=== PATIENT | male | born 1995 | race Native Hawaiian/Other Pacific Islander ===

== ENCOUNTER 2017-02-24 16:19 | Emergency (ER) | payer SELFPAY ==
[2017-02-24] MEDS ORDERED: BOOSTRIX IM ONE (22:16)
[2017-02-24] MEDS ORDERED: XYLOCAINE 1% 20 mL INFILTRATI ONE (22:16)
[2017-02-24] MEDS ORDERED: ULTRAM PO ONE (22:17)
--- NOTE | 2017-02-24 22:58 | Emergency Department Report ---
ED Upper Extremity Inj HPI - General Chief Complaint: Extremity Injury, Upper Stated Complaint: FINGER INJURY Time Seen by Provider: 02/24/17 22:13 Source: patient Mode of arrival: Ambulatory Limitations: No Limitations - History of Present Illness Initial Comments: This is a 21-year-old male nontoxic, well nourished in appearance, no acute signs of distress presents to the ED with c/o of right thumb finger pain. Patient stated a metal plate hit his finger today around 3 PM. Patient stated his fingernail is coming out. Patient denies any numbness, tingling, fever, chills, headache, nausea, vomiting, chest pain, shortness of breathe, fever, chills, headache. Patient denies any other trauma. Denies up to date tetanus. Patients is present in the ED. MD Complaint: Injury to:: right, finger -: This afternoon Other Extremity Injury: Fingers: Right Other Injuries: none Place: work Severity scale (0 -10): 8 Improves With: none Worsens With: none Context: injury Associated Symptoms: denies other symptoms. denies: weakness, numbness, neck pain, suspects foreign body, nausea/vomiting, heard/felt popping sensat - Related Data Previous Rx's Medication Instructions Recorded Last Taken Type Sulfamethoxazole/Trimethoprim 1 each PO BID #14 tablet 02/25/17 Unknown Rx [Bactrim DS TAB] traMADol [Ultram] 50 mg PO Q6HR PRN #20 tablet 02/25/17 Unknown Rx Allergies Allergy/AdvReac Type Severity Reaction Status Date / Time No Known Allergies Allergy Verified 02/24/17 23:26 ED Review of Systems ROS: Stated complaint: FINGER INJURY Other details as noted in HPI Constitutional: denies: chills, fever Eyes: denies: eye pain, eye discharge, vision change ENT: denies: ear pain, throat pain Respiratory: denies: cough, shortness of breath, wheezing Cardiovascular: denies: chest pain, palpitations Endocrine: no symptoms reported Gastrointestinal: denies: abdominal pain, nausea, diarrhea Genitourinary: denies: urgency, dysuria Musculoskeletal: denies: back pain, joint swelling, arthralgia Skin: denies: rash, lesions Neurological: denies: headache, weakness, paresthesias Psychiatric: denies: anxiety, depression Hematological/Lymphatic: denies: easy bleeding, easy bruising ED Past Medical Hx - Past Medical History Previous Medical History?: No - Surgical History Past Surgical History?: No - Social History Smoking Status: Never Smoker Substance Use Type: Alcohol, Marijuana - Medications Home Medications: Home Medications Medication Instructions Recorded Confirmed Last Taken Type Sulfamethoxazole/Trimethoprim 1 each PO BID #14 tablet 02/25/17 Unknown Rx [Bactrim DS TAB] traMADol [Ultram] 50 mg PO Q6HR PRN #20 tablet 02/25/17 Unknown Rx ED Physical Exam - General Limitations: No Limitations General appearance: alert, in no apparent distress - Head Head exam: Present: atraumatic, normocephalic - Eye Eye exam: Present: normal appearance - ENT ENT exam: Present: mucous membranes moist - Neck Neck exam: Present: normal inspection - Respiratory Respiratory exam: Present: normal lung sounds bilaterally. Absent: respiratory distress - Cardiovascular Cardiovascular Exam: Present: regular rate, normal rhythm. Absent: systolic murmur, diastolic murmur, rubs, gallop - GI/Abdominal GI/Abdominal exam: Present: soft, normal bowel sounds - Rectal Rectal exam: Present: deferred - Extremities Exam Extremities exam: Present: normal inspection, full ROM, tenderness, normal capillary refill. Absent: pedal edema, joint swelling, calf tenderness - Expanded Upper Extremity Exam Right General: Present: normal inspection Shoulder Exam: Present: normal inspection, full ROM Upper Arm exam: Present: normal inspection, full ROM Elbow exam: Present: normal inspection, full ROM Forearm Wrist exam: Present: normal inspection, full ROM Hand Wrist exam: Present: normal inspection, full ROM, tenderness, abrasion, nail avulsion. Absent: swelling, laceration, ecchymosis, deformity, crepidus, dislocation, erythema, amputation, subungual hematoma Neuro motor exam: Present: wrist extension intact, thumb opposition intact, thumb IP flexion intact, thumb adduction intact, fingers 2-5 abduction intact Neurosensory exam: Present: 2-point discrimination, radial nerve intact, ulnar nerve intact, median nerve intact Vascular: Present: vascular compromise, normal capillary refill, radial pulse, brachial pulse, ulnar pulse - Back Exam Back exam: Present: normal inspection, full ROM - Neurological Exam Neurological exam: Present: alert, oriented X3, CN II-XII intact, normal gait, reflexes normal - Psychiatric Psychiatric exam: Present: normal affect, normal mood - Skin Skin exam: Present: warm, dry, intact, normal color. Absent: rash ED Course Vital Signs 02/24/17 02/24/17 16:25 22:36 Temperature 98.3 F Pulse Rate 64 Respiratory 16 18 Rate Blood Pressure 125/75 O2 Sat by Pulse 99 Oximetry - Reevaluation(s) Reevaluation #1: 02/24/17 22:59 Patient is speaking in full sentences with no signs of distress noted. Reevaluation #2: 02/25/17 00:02 Post-splint assessment; neurovascular intact. Patient denies splint being too tight. Normal capillary refill. Normal sensation. ED Medical Decision Making - Medical Decision Making This is a 21-year-old male that presents with 1st phalanx fracture and nail avulsion. Patient is stable and was examined by me. The nail has been removed by : Under sterile field, I used Betadine to clean the area. I then used 40 mL of normal saline to flush the area. I then used 1% lidocaine plan and injected 2 mL to the proximal first phalanx for a digital block. I then used a sterile iris scissors to dissect nail bed. I then applied a sterile Xeroform and sterile dressing to the area. Minimal bleeding noted but is under control. Patient tolerated procedure well with no signs of distress. Patient received a finger splint. X-ray has been obtained and dictated a radiologist with first distal tip phalanx fracture. She was notified of x-ray results with no gross noted by the patient. Patient received tetanus booster in the ED. Patient received Ultram and Toradol for pain. Patient was instructed not to operate any machinery after discharge due to drowsiness of Ultram. Patient received Bactrim and Ultram and discharged. Patient was instructed Follow-up with a primary care doctor in 3-5 days or if symptoms worsen and continue return to emergency room as soon as possible. At time time of discharge, the patient does not seem toxic or ill in appearance. No acute signs of distress noted. Patient agrees to discharge treatment plan of care. No further questions noted by the patient. Critical care attestation.: If time is entered above; I have spent that time in minutes in the direct care of this critically ill patient, excluding procedure time. ED Disposition Clinical Impression: Nail avulsion, finger Qualifiers: Encounter type: initial encounter Qualified Code(s): S61.309A - Unspecified open wound of unspecified finger with damage to nail, initial encounter Phalanx, distal fracture of finger Qualifiers: Encounter type: initial encounter Finger: thumb Fracture type: closed Fracture alignment: nondisplaced Laterality: right Qualified Code(s): S62.524A - Nondisplaced fracture of distal phalanx of right thumb, initial encounter for closed fracture Disposition: - TO HOME OR SELFCARE Is pt being admited?: No Does the pt Need Aspirin: No Condition: Stable Instructions: Toenail/Fingernail Removal (ED), Finger Fracture (ED), Tramadol ( By mouth), Sulfamethoxazole/Trimethoprim (By mouth), Acute Wound Care (ED) Additional Instructions: Follow-up with a primary care doctor in 3-5 days or if symptoms worsen and continue return to emergency room as soon as possible. Do not operate any machinery after discharge and when you take Ultram due to drowsiness Prescriptions: Sulfamethoxazole/Trimethoprim [Bactrim DS TAB] 1 each PO BID #14 tablet traMADol [Ultram] 50 mg PO Q6HR PRN #20 tablet PRN Reason: Pain Referrals: PRIMARY CAREMD [Primary Care Provider] - 3-5 Days BRENDAN VERGARA MD [Staff Physician] - 3-[address] [facility] [Outside] - 3-5 Days [facility] [Outside] - 3-5 Days Forms: Work/School Release Form(ED)
[2017-02-24] MEDS ORDERED: TYLENOL #3 ONE (23:27)
[2017-02-24] MEDS ORDERED: TORADOL ONE (23:28)
--- NOTE | 2017-02-24 23:40 | XRay Report ---
FINAL REPORT PROCEDURE: XR FINGER(S) 2+V RT TECHNIQUE: RIGHT 1st finger radiographs, including AP, lateral, and oblique views. HISTORY: right thumb and trauma COMPARISON: No prior studies are available for comparison. FINDINGS: Fracture (s) and/or Dislocation(s): There is a fracture of the tip of the 1st distal phalanx.. Alignment: Normal. Joint space(s): Normal . Soft tissues: There is soft tissue swelling of the 1st digit.. Bone mineralization: Normal . Foreign bodies: None . IMPRESSION: Fracture of the tip of the 1st distal phalanx. There is no joint dislocation.
[2017-02-25] MEDS ORDERED: TORADOL IM ONE (00:12)
[2017-02-25 02:20] VITALS: BP 126/71
== END 2017-02-25 00:15 | disposition home or self-care (01) ==
LOC: ED 16:19
DX: S62.524A Nondisplaced fracture of distal phalanx of right thumb, initial encounter for closed fracture (principal); F12.10 Cannabis abuse, uncomplicated; W22.8XXA Striking against or struck by other objects, initial encounter; Y93.89 Activity, other specified; Y99.8 Other external cause status; Y92.89 Other specified places as the place of occurrence of the external cause
CPT/HCPCS: 11730; 73140; 90471; 90715; 96372; 99283; J1885